=== PATIENT | female | born 1975 | race Caucasian/White ===

== ENCOUNTER 2021-12-25 17:43 | Inpatient (IN) | payer OTHER ==
[2021-12-25] MEDS ORDERED: SODIUM CHLORIDE 1,000 ML IV STA (19:21)
[2021-12-25] MEDS ORDERED: ACETAMINOPHEN 1000 MG/100 ML BAG IVPB ONE (19:23)
[2021-12-25] MEDS ORDERED: ONDANSETRON 4 MG/2 ML VIAL IVPB ONE (19:30)
[2021-12-25] MEDS ORDERED: morphine CARPU-JECT 4 MG/1 ML DISP.SYRIN IVPUSH ONE (19:52)
[2021-12-25] MEDS ORDERED: morphine SULFATE 4 MG/ML VIAL ONE (20:07)
[2021-12-25] MEDS ORDERED: ONDANSETRON 4 MG/2 ML VIAL ONE (20:08)
[2021-12-25] MEDS ORDERED: ACETAMINOPHEN INJECTION 100 ML IVPB ONE (20:08)
[2021-12-25 20:23] LABS: BASO % 0.2 % (0-2.0); HEMATOCRIT 28.2 % (32.4-45.2); HEMOGLOBIN 8.8 GM/dL (10.7-15.3); LYMPH % 1.9 % (8-40); MCH 20.8 pg (25.7-33.7); MEAN CELL VOLUME 67.1 fl (80-96); MONO % 3.7 % (3.8-10.2); NEUT % 94.2 % (42.8-82.8); PLATELET COUNT 321 10^3/uL (134-434); RBC 4.21 M/mm3 (3.60-5.2); RDW 22.5 % (11.6-15.6); WHITE BLOOD COUNT 16.2 K/mm3 (4.0-10.0)
[2021-12-25 20:43] LABS: EPI CELLS >36 /uL (0-25.1); HYALINE CASTS 18 /uL (0-3.1); URINE APPEARANCE CLOUDY; URINE BACTERIA 1146 /uL (0-1359); URINE BILIRUBIN NEGATIVE (NEGATIVE); URINE COLOR YELLOW; URINE GLUCOSE (UA) NEGATIVE (NEGATIVE); URINE KETONE TRACE (NEGATIVE); URINE LEUK ESTERASE NEGATIVE (NEGATIVE); URINE NITRITE NEGATIVE (NEGATIVE); URINE PROTEIN 1+ (NEGATIVE); URINE UROBILINOGEN 0.2 mg/dL (0.2-1.0); URINE WBC 31 /uL (0-25.8)
[2021-12-25 20:44] LABS: CALCIUM 9.3 mg/dL (8.5-10.1)
[2021-12-25 20:45] LABS: ALBUMIN 4.3 g/dl (3.4-5.0); BLOOD UREA NITROGEN 8.3 mg/dL (7-18)
[2021-12-25 20:48] LABS: CREATININE 0.8 mg/dL (0.55-1.3)
[2021-12-25 20:49] LABS: BILIRUBIN,TOTAL 1.2 mg/dL (0.2-1); TOT PROT 8.4 g/dl (6.4-8.2)
[2021-12-25 21:10] LABS: LACTIC ACID 2.5 mmol/L (0.4-2.0)
[2021-12-25] MEDS ORDERED: CEFTRIAXONE 1,000 MG in DEXTROSE 5%-WATER - 50 ML IVPB ONE (21:11)
[2021-12-25 21:27] LABS: ANISOCYTOSIS 2+; MACROCYTOSIS 2+; PLATELET ESTIMATE NORMAL
[2021-12-25] MEDS ORDERED: SODIUM CHLORIDE 0.9% 1000 ML INFUS.BAG IV ONE (21:31)
[2021-12-25 21:45] LABS: URINE RBC 24.2 /uL (0-23.9)
[2021-12-25] MEDS ORDERED: CEFTRIAXONE 1 GM/50 ML BAG ONE (23:07)
[2021-12-25] MEDS ORDERED: LACTATED RINGERS SOLUTION 1,000 ML IV SCH (23:45)
[2021-12-26 01:15] LABS: INR 1.25 (0.83-1.09); PROTHROMBIN TIME (PATIENT) 14.4 SEC (9.7-13.0)
[2021-12-26 01:17] LABS: ACTIVATED PTT 22.8 SECONDS (25.2-36.5)
[2021-12-26] MEDS ORDERED: KCL 10 MEQ IVPB 10 MEQ/100 ML INFUS.BAG IVPB ONE ×2 (03:04→04:39)
[2021-12-26] MEDS ORDERED: ACETAMINOPHEN INJECTION 100 ML IVPB ONE ×2 (03:09→09:29)
[2021-12-26] MEDS: KCL 10 MEQ IVPB 10 MEQ/100 ML INFUS.BAG IVPB SCH ×2 (03:22→04:39)
[2021-12-26] MEDS: ACETAMINOPHEN 1000 MG/100 ML BAG IVPB PRN ×2 (03:23→09:35)
[2021-12-26 03:47] LABS: LACTIC ACID 2.4 mmol/L (0.4-2.0)
[2021-12-26] MEDS ORDERED: LACTATED RINGERS SOLUTION 1,000 ML/1,000 ML INFUS.BAG IV STA (03:51)
[2021-12-26] MEDS ORDERED: LACTATED RINGERS SOLUTION 1,000 ML IV SCH ×4 (03:52→11:30)
[2021-12-26] MEDS ORDERED: KETOROLAC TROMETHAMINE 15 MG/ML VIAL IVPUSH ONE (06:50)
[2021-12-26 07:06] LABS: HEMATOCRIT 23.1 % (32.4-45.2); HEMOGLOBIN 7.1 GM/dL (10.7-15.3); MCH 20.8 pg (25.7-33.7); MCHC 30.6 g/dl (32.0-36.0); MEAN PLT VOLUME 9.6 fl (7.5-11.1); PLATELET COUNT 251 10^3/uL (134-434); RBC 3.39 M/mm3 (3.60-5.2); RDW 22.8 % (11.6-15.6); WHITE BLOOD COUNT 12.3 K/mm3 (4.0-10.0)
[2021-12-26 07:09] LABS: INR 1.45 (0.83-1.09); PROTHROMBIN TIME (PATIENT) 16.7 SEC (9.7-13.0)
[2021-12-26 07:27] LABS: BLOOD UREA NITROGEN 6.7 mg/dL (7-18)
[2021-12-26 07:28] LABS: MAGNESIUM 1.6 mg/dL (1.8-2.4)
[2021-12-26 07:30] LABS: CREATININE 0.5 mg/dL (0.55-1.3); PHOSPHOROUS 3.4 mg/dL (2.5-4.9)
[2021-12-26 07:32] LABS: BILIRUBIN,TOTAL 1.1 mg/dL (0.2-1)
[2021-12-26 07:50] LABS: CALCIUM 7.9 mg/dL (8.5-10.1); TOT PROT 6.3 g/dl (6.4-8.2)
[2021-12-26] MEDS ORDERED: SODIUM CHLORIDE 1,000 ML IV STA (07:50)
[2021-12-26] MEDS ORDERED: PIPERACILLIN/TAZOB 4.5 GM 4.5 GM in DEXTROSE 5%-WATER 100 ML IVPB ONE (07:54)
[2021-12-26] MEDS ORDERED: PIPERACILLIN/TAZOB 4.5 GM 4.5 GM/100 ML BAG IVPB ONE (07:59)
[2021-12-26] MEDS ORDERED: DEXAMETHASONE SOD PHOSPHATE 4 MG/1 ML VIAL ONE (09:28)
[2021-12-26] MEDS ORDERED: LIDOCAINE HCL/PF 2% SDV 5ML VIAL ONE ×2 (09:28→10:20)
[2021-12-26] MEDS ORDERED: ONDANSETRON 4 MG/2 ML VIAL ONE (09:28)
[2021-12-26] MEDS ORDERED: ROCURONIUM BROMIDE 50 MG/5 ML SYRINGE ONE (09:28)
[2021-12-26] MEDS ORDERED: PROPOFOL 20 ML ONE ×2 (09:28)
[2021-12-26] MEDS ORDERED: KETOROLAC TROMETHAMINE 30 MG/1 ML VIAL ONE ×3 (09:28→19:30)
[2021-12-26] MEDS ORDERED: SUCCINYLCHOLINE CHLORIDE 200 MG/10 ML SYRINGE ONE (09:28)
[2021-12-26] MEDS ORDERED: PIPERACILLIN/TAZOB 3.375 GM 3.375 GM in DEXTROSE 5%-WATER - 50 ML IVPB SCH ×2 (10:00→18:00)
[2021-12-26] MEDS ORDERED: MIDAZOLAM HCL 2 MG/2 ML SINGLE DOSE VIAL ONE (10:20)
[2021-12-26] MEDS ORDERED: PHENYLEPHRINE HCL 10 MG/1 ML SINGLE DOSE VIAL ONE (10:45)
[2021-12-26] MEDS ORDERED: ACETAMINOPHEN 1000 MG/100 ML BAG IVPB PRN ×2 (11:16→12:33)
[2021-12-26] MEDS ORDERED: ONDANSETRON 4 MG/2 ML VIAL IVPUSH PRN ×2 (11:16→12:33)
[2021-12-26] MEDS ORDERED: HYDROmorphone HCl 2 MG/ML VIAL IVPUSH PRN ×2 (11:17)
[2021-12-26] MEDS ORDERED: BUPIVACAINE HCL/PF 0.5% (5MG/ML) 10 ML VIAL IJ ONE ×2 (11:39→11:52)
[2021-12-26] MEDS ORDERED: GLYCOPYRROLATE 0.2 MG/1 ML VIAL ONE (11:48)
[2021-12-26] MEDS ORDERED: NEOSTIGMINE METHYLSULFATE 0.5 MG/ML - 10 ML MDV ONE (11:48)
[2021-12-26] MEDS: LACTATED RINGERS SOLUTION 1,000 ML IV SCH (12:33)
[2021-12-26] MEDS ORDERED: HYDROmorphone HCL CARPU-JECT 2 MG/1 ML DISP.SYRIN IVPUSH ONE ×2 (12:40→13:06)
[2021-12-26] MEDS ORDERED: HYDROmorphone HCl 2 MG/ML VIAL ONE (12:41)
[2021-12-26] MEDS: KETOROLAC TROMETHAMINE 15 MG/ML VIAL IVPUSH SCH ×2 (12:45→19:35)
[2021-12-26] MEDS ORDERED: MAGNESIUM SULF 50% (8.12 MEQ/2 ML-1 GM VIAL) IVPB ONE (13:16)
[2021-12-26] MEDS ORDERED: MAGNESIUM 2GM/50ML STERILE WATER IVPB IVPB ONE (14:00)
[2021-12-26] MEDS: PIPERACILLIN/TAZOB 3.375 GM 3.375 GM in DEXTROSE 5%-WATER - 50 ML IVPB SCH ×2 (16:48→22:16)
[2021-12-26] MEDS ORDERED: SODIUM CHLORIDE 0.9% 500 ML INFUS.BAG IV ONE (20:39)
[2021-12-26] MEDS: LORATADINE 10 MG TABLET PO SCH (21:10)
[2021-12-26] MEDS ORDERED: PIPERACILLIN/TAZOBACTAM 3.375 GM VIAL IVPB ONE (21:21)
[2021-12-26] MEDS ORDERED: DEXTROSE 5%-WATER - 50 ML IVPB ONE (21:22)
[2021-12-27] MEDS: KETOROLAC TROMETHAMINE 15 MG/ML VIAL IVPUSH SCH ×4 (00:55→18:20)
[2021-12-27] MEDS ORDERED: PIPERACILLIN/TAZOBACTAM 3.375 GM VIAL IVPB ONE ×4 (04:29→21:06)
[2021-12-27] MEDS ORDERED: DEXTROSE 5%-WATER - 50 ML IVPB ONE ×4 (04:30→21:07)
[2021-12-27 04:39] VITALS: BMI 23.2
[2021-12-27] MEDS: PIPERACILLIN/TAZOB 3.375 GM 3.375 GM in DEXTROSE 5%-WATER - 50 ML IVPB SCH ×5 (04:49→21:20)
[2021-12-27] MEDS: ACETAMINOPHEN 1000 MG/100 ML BAG IVPB PRN ×3 (05:31→21:59)
[2021-12-27 09:03] LABS: HEMATOCRIT 24.7 % (32.4-45.2); HEMOGLOBIN 7.8 GM/dL (10.7-15.3); MCH 22.2 pg (25.7-33.7); MCHC 31.7 g/dl (32.0-36.0); MEAN CELL VOLUME 70.1 fl (80-96); MEAN PLT VOLUME 9.7 fl (7.5-11.1); PLATELET COUNT 245 10^3/uL (134-434); RBC 3.52 M/mm3 (3.60-5.2); RDW 22.4 % (11.6-15.6); WHITE BLOOD COUNT 12.4 K/mm3 (4.0-10.0)
[2021-12-27 09:29] LABS: ALBUMIN 2.6 g/dl (3.4-5.0); BLOOD UREA NITROGEN 6.1 mg/dL (7-18); CALCIUM 8.4 mg/dL (8.5-10.1); MAGNESIUM 2.3 mg/dL (1.8-2.4)
[2021-12-27 09:32] LABS: CREATININE 0.4 mg/dL (0.55-1.3)
[2021-12-27 09:33] LABS: TOT PROT 5.8 g/dl (6.4-8.2)
[2021-12-27 09:34] LABS: BILIRUBIN,TOTAL 1.6 mg/dL (0.2-1)
[2021-12-27] MEDS: LORATADINE 10 MG TABLET PO SCH (09:40)
[2021-12-27 09:50] LABS: ANISOCYTOSIS 2+
[2021-12-27 09:59] LABS: BILIRUBIN,DIRECT 0.4 mg/dL (0.0-0.2)
[2021-12-27] MEDS: KCL 10 MEQ IVPB 10 MEQ/100 ML INFUS.BAG IVPB SCH ×3 (11:13→17:47)
[2021-12-27] MEDS: LACTATED RINGERS SOLUTION 1,000 ML IV SCH (16:02)
[2021-12-27] MEDS: NAPH,MB-DB/K PH,MBDB POWDER PACKET PO SCH ×2 (16:03→21:21)
[2021-12-28] MEDS: KETOROLAC TROMETHAMINE 15 MG/ML VIAL IVPUSH SCH ×4 (00:30→18:13)
[2021-12-28] MEDS ORDERED: PIPERACILLIN/TAZOBACTAM 3.375 GM VIAL IVPB ONE ×4 (03:27→20:28)
[2021-12-28] MEDS ORDERED: DEXTROSE 5%-WATER - 50 ML IVPB ONE ×4 (03:27→20:28)
[2021-12-28] MEDS: PIPERACILLIN/TAZOB 3.375 GM 3.375 GM in DEXTROSE 5%-WATER - 50 ML IVPB SCH ×4 (04:25→20:34)
[2021-12-28] MEDS: LACTATED RINGERS SOLUTION 1,000 ML IV SCH ×2 (05:50→20:34)
[2021-12-28] MEDS: NAPH,MB-DB/K PH,MBDB POWDER PACKET PO SCH (05:53)
[2021-12-28 09:14] LABS: HEMATOCRIT 25.2 % (32.4-45.2); HEMOGLOBIN 8.1 GM/dL (10.7-15.3); MCH 22.5 pg (25.7-33.7); MEAN CELL VOLUME 70.4 fl (80-96); MEAN PLT VOLUME 9.7 fl (7.5-11.1); PLATELET COUNT 286 10^3/uL (134-434); RBC 3.58 M/mm3 (3.60-5.2); RDW 22.9 % (11.6-15.6); WHITE BLOOD COUNT 8.1 K/mm3 (4.0-10.0)
[2021-12-28 09:48] LABS: CALCIUM 7.9 mg/dL (8.5-10.1)
[2021-12-28 09:49] LABS: ALBUMIN 2.7 g/dl (3.4-5.0); BLOOD UREA NITROGEN 5.1 mg/dL (7-18); MAGNESIUM 2.2 mg/dL (1.8-2.4)
[2021-12-28 09:51] LABS: CREATININE 0.4 mg/dL (0.55-1.3)
[2021-12-28 09:52] LABS: BILIRUBIN,TOTAL 1.2 mg/dL (0.2-1); TOT PROT 5.9 g/dl (6.4-8.2)
[2021-12-28 09:53] LABS: PHOSPHOROUS 2.8 mg/dL (2.5-4.9)
[2021-12-28] MEDS: LORATADINE 10 MG TABLET PO SCH (10:21)
[2021-12-28 20:04] LABS: ALBUMIN 2.6 g/dl (3.4-5.0); CALCIUM 8.2 mg/dL (8.5-10.1)
[2021-12-28 20:08] LABS: CREATININE 0.6 mg/dL (0.55-1.3)
[2021-12-28 20:10] LABS: BILIRUBIN,TOTAL 0.8 mg/dL (0.2-1); BLOOD UREA NITROGEN 5.6 mg/dL (7-18); TOT PROT 6.3 g/dl (6.4-8.2)
[2021-12-28] MEDS: ACETAMINOPHEN 325 MG TABLET (FP) PO PRN (22:08)
[2021-12-29] MEDS: KETOROLAC TROMETHAMINE 15 MG/ML VIAL IVPUSH SCH ×4 (00:29→18:37)
[2021-12-29] MEDS ORDERED: PIPERACILLIN/TAZOBACTAM 3.375 GM VIAL IVPB ONE ×4 (02:40→20:45)
[2021-12-29] MEDS ORDERED: DEXTROSE 5%-WATER - 50 ML IVPB ONE ×4 (02:40→20:45)
[2021-12-29] MEDS: PIPERACILLIN/TAZOB 3.375 GM 3.375 GM in DEXTROSE 5%-WATER - 50 ML IVPB SCH ×4 (02:49→20:58)
[2021-12-29] MEDS: LACTATED RINGERS SOLUTION 1,000 ML IV SCH ×2 (12:37→15:51)
[2021-12-29 13:51] LABS: HEMATOCRIT 26.6 % (32.4-45.2); HEMOGLOBIN 8.6 GM/dL (10.7-15.3); MCH 22.1 pg (25.7-33.7); MCHC 32.4 g/dl (32.0-36.0); MEAN CELL VOLUME 68.2 fl (80-96); MEAN PLT VOLUME 8.6 fl (7.5-11.1); PLATELET COUNT 360 10^3/uL (134-434); RDW 23.2 % (11.6-15.6); WHITE BLOOD COUNT 4.5 K/mm3 (4.0-10.0)
[2021-12-29 14:19] LABS: BLOOD UREA NITROGEN 5.9 mg/dL (7-18)
[2021-12-29 14:22] LABS: CREATININE 0.5 mg/dL (0.55-1.3)
[2021-12-30] MEDS: KETOROLAC TROMETHAMINE 15 MG/ML VIAL IVPUSH SCH ×2 (00:15→06:17)
[2021-12-30] MEDS ORDERED: DEXTROSE 5%-WATER - 50 ML IVPB ONE ×4 (01:22→21:17)
[2021-12-30] MEDS ORDERED: PIPERACILLIN/TAZOBACTAM 3.375 GM VIAL IVPB ONE ×4 (01:22→21:17)
[2021-12-30] MEDS: LACTATED RINGERS SOLUTION 1,000 ML IV SCH ×2 (02:09→14:01)
[2021-12-30] MEDS: PIPERACILLIN/TAZOB 3.375 GM 3.375 GM in DEXTROSE 5%-WATER - 50 ML IVPB SCH ×4 (02:09→21:32)
[2021-12-30] MEDS: ACETAMINOPHEN 325 MG TABLET (FP) PO PRN (22:06)
[2021-12-31] MEDS ORDERED: PIPERACILLIN/TAZOBACTAM 3.375 GM VIAL IVPB ONE ×2 (00:52→10:14)
[2021-12-31] MEDS ORDERED: DEXTROSE 5%-WATER - 50 ML IVPB ONE (00:52)
[2021-12-31] MEDS: PIPERACILLIN/TAZOB 3.375 GM 3.375 GM in DEXTROSE 5%-WATER - 50 ML IVPB SCH ×2 (02:02→10:44)
[2021-12-31] MEDS: LACTATED RINGERS SOLUTION 1,000 ML IV SCH (02:08)
[2021-12-31 08:50] LABS: BASO % 1.1 % (0-2.0); EOS % 6.6 % (0-4.5); HEMATOCRIT 29.1 % (32.4-45.2); HEMOGLOBIN 9.4 GM/dL (10.7-15.3); LYMPH % 12.6 % (8-40); MCH 22.1 pg (25.7-33.7); MCHC 32.3 g/dl (32.0-36.0); MEAN CELL VOLUME 68.5 fl (80-96); MEAN PLT VOLUME 8.2 fl (7.5-11.1); MONO % 11.5 % (3.8-10.2); NEUT % 68.2 % (42.8-82.8); PLATELET COUNT 431 10^3/uL (134-434); RBC 4.24 M/mm3 (3.60-5.2); WHITE BLOOD COUNT 5.9 K/mm3 (4.0-10.0)
[2021-12-31 09:15] LABS: CALCIUM 8.7 mg/dL (8.5-10.1)
[2021-12-31 09:16] LABS: BLOOD UREA NITROGEN 5.5 mg/dL (7-18)
[2021-12-31 09:19] LABS: CREATININE 0.4 mg/dL (0.55-1.3)
[2021-12-31 09:20] LABS: BILIRUBIN,TOTAL 0.7 mg/dL (0.2-1); TOT PROT 7.4 g/dl (6.4-8.2)
[2021-12-31 12:35] LABS: ANISOCYTOSIS 1+; MACROCYTOSIS 0; OVALOCYTE 1+
[2021-12-31] MEDS: metroNIDAZOLE 250 MG TABLET PO SCH ×2 (14:12→22:00)
[2022-01-01] MEDS: metroNIDAZOLE 250 MG TABLET PO SCH ×3 (05:32→21:58)
[2022-01-01 09:00] LABS: BASO % 1.1 % (0-2.0); EOS % 5.8 % (0-4.5); HEMATOCRIT 28.8 % (32.4-45.2); HEMOGLOBIN 9.3 GM/dL (10.7-15.3); LYMPH % 17.7 % (8-40); MCH 22.1 pg (25.7-33.7); MCHC 32.3 g/dl (32.0-36.0); MEAN CELL VOLUME 68.6 fl (80-96); MEAN PLT VOLUME 8.8 fl (7.5-11.1); MONO % 13.5 % (3.8-10.2); NEUT % 61.9 % (42.8-82.8); PLATELET COUNT 489 10^3/uL (134-434); RBC 4.19 M/mm3 (3.60-5.2); RDW 23.3 % (11.6-15.6); WHITE BLOOD COUNT 5.5 K/mm3 (4.0-10.0)
[2022-01-01 09:09] LABS: BLOOD UREA NITROGEN 6.5 mg/dL (7-18); CALCIUM 9.1 mg/dL (8.5-10.1)
[2022-01-01 09:13] LABS: CREATININE 0.4 mg/dL (0.55-1.3)
[2022-01-01 09:15] LABS: BILIRUBIN,TOTAL 0.4 mg/dL (0.2-1); TOT PROT 7.4 g/dl (6.4-8.2)
[2022-01-01] MEDS: LACTATED RINGERS SOLUTION 1,000 ML/1,000 ML INFUS.BAG IV SCH (11:43)
[2022-01-02] MEDS: metroNIDAZOLE 250 MG TABLET PO SCH ×2 (05:17→14:05)
[2022-01-02 07:07] VITALS: RESP 18
[2022-01-02 08:31] LABS: HEMATOCRIT 29.6 % (32.4-45.2); HEMOGLOBIN 9.2 GM/dL (10.7-15.3); MCH 21.6 pg (25.7-33.7); MCHC 31.2 g/dl (32.0-36.0); MEAN CELL VOLUME 69.3 fl (80-96); MEAN PLT VOLUME 8.9 fl (7.5-11.1); PLATELET COUNT 536 10^3/uL (134-434); RBC 4.28 M/mm3 (3.60-5.2); RDW 22.9 % (11.6-15.6); WHITE BLOOD COUNT 7.4 K/mm3 (4.0-10.0)
[2022-01-02 08:49] LABS: BLOOD UREA NITROGEN 8.1 mg/dL (7-18); MAGNESIUM 2.4 mg/dL (1.8-2.4)
[2022-01-02 08:52] LABS: CREATININE 0.4 mg/dL (0.55-1.3); PHOSPHOROUS 3.9 mg/dL (2.5-4.9)
[2022-01-02 08:53] LABS: TOT PROT 7.3 g/dl (6.4-8.2)
[2022-01-02 08:54] LABS: BILIRUBIN,TOTAL 0.4 mg/dL (0.2-1)
[2022-01-02] MEDS: LACTATED RINGERS SOLUTION 1,000 ML/1,000 ML INFUS.BAG IV SCH (12:05)
[2022-01-02 15:18] VITALS: BP 99/61; PULSE 74; TEMP 99.1
[2022-01-12 18:14] LABS: HEMATOCRIT 26.6 % (32.4-45.2); HEMOGLOBIN 8.7 GM/dL (10.7-15.3); MCH 22.6 pg (25.7-33.7); MCHC 32.7 g/dl (32.0-36.0); MEAN CELL VOLUME 69.1 fl (80-96); MEAN PLT VOLUME 8.3 fl (7.5-11.1); PLATELET COUNT 664 10^3/uL (134-434); RBC 3.84 M/mm3 (3.60-5.2); RDW 22.2 % (11.6-15.6); WHITE BLOOD COUNT 5.4 K/mm3 (4.0-10.0)
[2022-01-12 18:20] LABS: CALCIUM 9.3 mg/dL (8.5-10.1)
[2022-01-12 18:21] LABS: BLOOD UREA NITROGEN 10.3 mg/dL (7-18)
[2022-01-12 18:24] LABS: CREATININE 0.5 mg/dL (0.55-1.3)
[2022-01-12 18:25] LABS: BILIRUBIN,TOTAL 0.5 mg/dL (0.2-1); TOT PROT 8.3 g/dl (6.4-8.2)
[2022-01-12 18:52] LABS: ALBUMIN 3.8 g/dl (3.4-5.0)
== END 2022-01-02 17:42 | disposition home or self-care (01) | DRG 710 ==
LOC: JER 17:43 → JERBED 23:45 → J8W 12-26 20:57
PROVIDERS: ADMIT Hospitalist; ATTEND Internal Medicine
PROC: 0W9G3ZZ Drainage of Peritoneal Cavity, Percutaneous Approach (ICD-10-PCS; 2021-12-26)
PROC: 0DTJ4ZZ Resection of Appendix, Percutaneous Endoscopic Approach (ICD-10-PCS; principal; 2021-12-26 12:30)
DX: A41.51 Sepsis due to Escherichia coli [E. coli] (principal); K35.21 Acute appendicitis with generalized peritonitis, with abscess; D64.9 Anemia, unspecified; E87.6 Hypokalemia; R65.21 Severe sepsis with septic shock; D25.9 Leiomyoma of uterus, unspecified; N83.201 Unspecified ovarian cyst, right side; R50.9 Fever, unspecified; D72.829 Elevated white blood cell count, unspecified; I95.9 Hypotension, unspecified; K76.0 Fatty (change of) liver, not elsewhere classified
CPT/HCPCS: 0241U-QW; 36415; 36430; 71045-TC-FY; 74177-TC; 76700-TC; 76705-TC; 76830-TC; 80048; 80053; 81003; 82248; 82607; 82728; 82746; 83540; 83550; 83605; 83690; 83735; 84100; 84703; 85025; 85027; 85045; 85610; 85730; 86140; 86850; 86900; 86901; 86922; 87040; 87086; 87186; 88304-TC; 93005; 93010; 94760; 99285-25; P9058

== ENCOUNTER 2022-07-25 04:24 | Day surgery (SDC) | payer OTHER ==
[2022-07-20 12:01] VITALS: BMI 19.6
[2022-07-25] MEDS ORDERED: CEFAZOLIN SODIUM 2 GM in DEXTROSE 5%-WATER - 100 ML IVPB ONE (07:00)
[2022-07-25] MEDS ORDERED: ceFAZolin SODIUM 1 GM VIAL ONE ×2 (07:57→15:18)
[2022-07-25] MEDS ORDERED: MIDAZOLAM HCL 2 MG/2 ML SINGLE DOSE VIAL ONE (09:49)
[2022-07-25] MEDS ORDERED: ROCURONIUM BROMIDE 50 MG/5 ML SYRINGE ONE ×2 (09:50→10:46)
[2022-07-25] MEDS ORDERED: PROPOFOL 20 ML ONE (09:51)
[2022-07-25] MEDS ORDERED: ceFAZolin SODIUM 1 GM VIAL IVPB ONE (10:00)
[2022-07-25] MEDS ORDERED: LIDOCAINE HCL/PF 2% SDV 5ML VIAL ONE (10:16)
[2022-07-25] MEDS ORDERED: ONDANSETRON 4 MG/2 ML VIAL ONE ×2 (10:16)
[2022-07-25] MEDS ORDERED: KETOROLAC TROMETHAMINE 30 MG/1 ML VIAL ONE (10:16)
[2022-07-25] MEDS ORDERED: DEXAMETHASONE SOD PHOSPHATE 4 MG/1 ML VIAL ONE (10:16)
[2022-07-25] MEDS ORDERED: [UNRECOGNIZED DRUG - OTHER] NR ONE (10:25)
[2022-07-25] MEDS ORDERED: SUGAMMADEX SODIUM 200 MG/2 ML VIAL ONE (11:41)
[2022-07-25] MEDS ORDERED: ONDANSETRON 4 MG/2 ML VIAL IVPUSH PRN ×2 (12:17→12:25)
[2022-07-25] MEDS ORDERED: oxyCODONE HCL 5 MG TABLET PO PRN ×2 (12:17→12:41)
[2022-07-25] MEDS ORDERED: PROMETHAZINE HCL 25 MG/1 ML VIAL IVPB PRN (12:17)
[2022-07-25] MEDS ORDERED: ACETAMINOPHEN 1000 MG/100 ML BAG IVPB ONE (12:18)
[2022-07-25] MEDS ORDERED: ACETAMINOPHEN INJECTION 100 ML IVPB ONE (12:24)
[2022-07-25] MEDS ORDERED: ACETAMINOPHEN 325 MG TABLET (FP) PO PRN (12:25)
[2022-07-25] MEDS ORDERED: LACTATED RINGERS SOLUTION 1,000 ML IV SCH (12:30)
[2022-07-25] MEDS ORDERED: KETOROLAC TROMETHAMINE 30 MG/1 ML VIAL IVPUSH PRN (12:34)
[2022-07-25 14:28] VITALS: RESP 16
[2022-07-25] MEDS ORDERED: CEFAZOLIN 1 GM in DEXTROSE 5%-WATER - 50 ML IVPB SCH (15:00)
[2022-07-25] MEDS ORDERED: oxyCODONE HCL 5 MG TABLET ONE (15:58)
[2022-07-25 17:50] VITALS: BP 110/56; PULSE 78; TEMP 97.9
[2022-07-26] MEDS ORDERED: ENOXAPARIN NA (PORCINE) 40 MG/0.4 ML DISP.SYRIN SQ SCH (10:00)
== END 2022-07-25 17:40 | disposition home or self-care (01) ==
LOC: JASUSAT 04:24 → JASU-SURG 04:24 → JASUSAT 17:40
PROVIDERS: ATTEND Specialist
PROC: 0UT7FZZ Resection of Bilateral Fallopian Tubes, Via Natural or Artificial Opening With Percutaneous Endoscopic Assistance (ICD-10-PCS; 2022-07-25)
PROC: 0UT2FZZ Resection of Bilateral Ovaries, Via Natural or Artificial Opening With Percutaneous Endoscopic Assistance (ICD-10-PCS; 2022-07-25)
PROC: 0DNU4ZZ Release Omentum, Percutaneous Endoscopic Approach (ICD-10-PCS; 2022-07-25)
PROC: 8E0W4CZ Robotic Assisted Procedure of Trunk Region, Percutaneous Endoscopic Approach (ICD-10-PCS; 2022-07-25)
PROC: 0UT9FZZ Resection of Uterus, Via Natural or Artificial Opening With Percutaneous Endoscopic Assistance (ICD-10-PCS; principal; 2022-07-25 09:30)
DX: D25.9 Leiomyoma of uterus, unspecified (principal); D28.2 Benign neoplasm of uterine tubes and ligaments; N94.89 Other specified conditions associated with female genital organs and menstrual cycle; N80.03 Adenomyosis of the uterus; N93.8 Other specified abnormal uterine and vaginal bleeding
CPT/HCPCS: 58554; S2900; 81025; 88302-TC; 88307-TC; 88341-TC; 88342-TC; 94760